=== PATIENT | female | born 1965 | race Caucasian/White ===

== ENCOUNTER 2016-09-18 17:23 | Emergency (ER) | payer OTHER ==
[~2016-09-18] VITALS: Ht 157.5 cm; Wt 87.1 kg
[~2016-09-18 17:23] MED LIST: ASPI81TA2 PO; GABA-531 PO; GLIP10TA11 PO; LOSA25TA11 PO; MECL25TA3 PO; METF1000 PO; METH750T3 PO
[2016-09-18 17:33] VITALS: BP_SYST 194
[2016-09-18] MEDS ORDERED: KETOROLAC TROMETHAMINE 60 MG/2 ML VIAL IM ONE (19:45)
[2016-09-18 20:35] VITALS: BP_SYST 156
== END 2016-09-18 20:35 | disposition home or self-care (01) ==
LOC: SED 17:23
DX: S20.219A Contusion of unspecified front wall of thorax, initial encounter (principal); E11.9 Type 2 diabetes mellitus without complications; K21.9 Gastro-esophageal reflux disease without esophagitis; Z88.1 Allergy status to other antibiotic agents; Z88.8 Allergy status to other drugs, medicaments and biological substances; Z79.82 Long term (current) use of aspirin; W01.0XXA Fall on same level from slipping, tripping and stumbling without subsequent striking against object, initial encounter; Y93.89 Activity, other specified; Y92.89 Other specified places as the place of occurrence of the external cause; Y99.8 Other external cause status
CPT/HCPCS: 71020; 96372; 99284; J1885

== ENCOUNTER 2018-07-25 01:34 | Inpatient (IN) | payer BC, OTHER ==
[~2018-07-25] VITALS: Ht 157.5 cm; Wt 90.3 kg
[~2018-07-25 01:34] MED LIST changes: +ASPI-1155 PO; -ASPI81TA2 PO; -LOSA25TA11 PO; +LOSA25TA18 PO
[2018-07-25 01:53] VITALS: BP_SYST 167
[2018-07-25] MEDS ORDERED: ONDANSETRON 4 MG ODT TAB PO ONE (02:15)
[2018-07-25] MEDS ORDERED: NACL 0.9% 1,000 ML IV ONE ×2 (02:17→03:45)
[2018-07-25] MEDS ORDERED: MORPHINE 4 MG/ML INJ. SYRINGE IVP ONE ×2 (02:30→04:00)
[2018-07-25 02:36] LABS: BASOPHILS # (AUTO) 0.2 K/uL (0.0-0.2); BASOPHILS % (AUTO) 1.3 % (0.0-2.0); EOSINOPHILS # (AUTO) 0.1 K/uL (0.0-0.4); EOSINOPHILS % (AUTO) 0.6 % (0.0-4.0); HEMATOCRIT 44.7 % (36-48); HEMOGLOBIN 15.3 g/dL (12.0-16.0); LYMPHOCYTES # (AUTO) 1.8 K/uL (1.0-5.5); LYMPHOCYTES % (AUTO) 14.5 % (20.5-51.5); MEAN CORPUSCULAR HEMOGLOBIN 33 pg (27-31); MEAN CORPUSCULAR HGB CONC 34 % (32-36); MEAN CORPUSCULAR VOLUME 95 fL (79.0-98.0); MONOCYTES # (AUTO) 0.7 K/uL (0.0-1.0); NEUTROPHILS # (AUTO) 9.4 K/uL (1.8-7.7); NEUTROPHILS % (AUTO) 77.6 % (40.0-70.0); PLATELET COUNT (AUTO) 285 K/uL (130-430); RED BLOOD CELL COUNT(AUTO) 4.69 MIL/uL (4.2-6.2); RED CELL DISTRIBUTION WIDTH 12.9 % (9.0-15.0); WHITE BLOOD COUNT (AUTO) 12.1 K/uL (4.8-10.8)
[2018-07-25 02:44] LABS: CREATININE 0.65 mg/dL (0.55-1.30); POTASSIUM 3.6 mmol/L (3.5-5.1)
[2018-07-25 02:49] LABS: ALBUMIN 3.9 g/dL (3.4-4.8); TOTAL BILIRUBIN 0.7 mg/dL (0.0-1.0)
[2018-07-25] MEDS ORDERED: GLIP10TA11 PO (03:30)
[2018-07-25] MEDS ORDERED: GLU500 PO (03:30)
[2018-07-25] MEDS ORDERED: GLU850 PO (03:30)
[2018-07-25] MEDS ORDERED: PREG75CA PO (03:30)
[2018-07-25] MEDS ORDERED: NAPR-688 PO (03:30)
[2018-07-25] MEDS ORDERED: METO50TA7 PO (03:30)
[2018-07-25] MEDS ORDERED: LOSA50TA3 PO (03:30)
[2018-07-25] MEDS ORDERED: 5-HY100C PO (03:30)
[2018-07-25 03:35] LABS: BILIRUBIN,URINE NEGATIVE (NEGATIVE); BLOOD, URINE NEGATIVE (NEGATIVE); CLARITY/URINE CLEAR (CLEAR); COLOR,URINE YELLOW (YELLOW); GLUCOSE,URINE 3+ (NEGATIVE); KETONES,URINE TRACE (NEGATIVE); LEUKOCYTE ESTERASE ,URINE NEGATIVE (NEGATIVE); NITRITE, URINE NEGATIVE (NEGATIVE); PH,URINE 8.5 (5.0-8.0); PROTEIN URINE TRACE (NEGATIVE); UROBILINOGEN,URINE 0.2 (0.2-1.0)
[2018-07-25 03:38] LABS: BACTERIA,URINE MODERATE /HPF (None Seen); RBC,URINE 0-3 /HPF (0-3); WBC,URINE 0-3 /HPF (0-3)
[2018-07-25] MEDS ORDERED: ENALAPRILAT DIHYDRATE 1.25 MG/ML VIAL IVP ONE (03:45)
[2018-07-25] MEDS: LABETALOL 100 MG/ 20ML VIAL IVP PRN (04:43)
[2018-07-25] MEDS ORDERED: MORPHINE 2 MG/ML INJ. SYRINGE IVP PRN (05:00)
[2018-07-25] MEDS ORDERED: INSULIN REGULAR, HUMAN 100 UNITS/ML, 10 ML VIAL SUBCUT PRN (05:00)
[2018-07-25] MEDS ORDERED: MORPHINE 4 MG/ML INJ. SYRINGE IVP PRN (05:00)
[2018-07-25] MEDS ORDERED: D5/0.45 NS 1,000 ML IV SCH (05:00)
[2018-07-25 05:36] VITALS: BP_SYST 155
[2018-07-25] MEDS: INSULIN REGULAR, HUMAN 100 UNITS/ML, 10 ML VIAL (humuLIN R) SUBCUT PRN ×3 (06:05→18:01)
[2018-07-25 08:10] VITALS: BP_SYST 168
[2018-07-25] MEDS: ONDANSETRON HCL 4 MG/2 ML VIAL IVP PRN ×4 (08:51→20:41)
[2018-07-25] MEDS ORDERED: D5W 1,000 ML IV PRN (09:08)
[2018-07-25] MEDS ORDERED: cefTRIAXone 1 GM IVPB PREMIX 50 ML IV SCH (09:15)
[2018-07-25] MEDS ORDERED: GLUCOSE 15 GM GEL (in 37.5 GM TUBE) PO PRN (09:15)
[2018-07-25] MEDS ORDERED: DEXTROSE 50% JECT 50 ML DISP.SYRIN IVP PRN (09:15)
[2018-07-25] MEDS: NACL 0.9% 1,000 ML IV SCH ×2 (10:52→22:09)
[2018-07-25] MEDS ORDERED: NITROGLYCERIN 1 INCH (GM) OINT. TP ONE (11:15)
[2018-07-25 12:00] VITALS: BP_SYST 165
[2018-07-25] MEDS ORDERED: PIPERACILLIN/TAZO 3.375/DEX-IS 50 ML IV ONE (12:00)
[2018-07-25] MEDS: MORPHINE 4 MG/ML INJ. SYRINGE IVP PRN ×3 (12:42→17:05)
[2018-07-25 16:14] VITALS: BP_SYST 133
[2018-07-25] MEDS: PIPERACILLIN/TAZO 3.375/DEX-IS 50 ML IV SCH ×2 (18:03→23:52)
[2018-07-25 20:00] VITALS: BP_SYST 161
[2018-07-25] MEDS: NITROGLYCERIN 1 INCH (GM) OINT. TP SCH (20:42)
[2018-07-26] MEDS: INSULIN REGULAR, HUMAN 100 UNITS/ML, 10 ML VIAL (humuLIN R) SUBCUT PRN ×5 (00:01→23:08)
[2018-07-26 00:21] VITALS: BP_SYST 143
[2018-07-26] MEDS: ONDANSETRON HCL 4 MG/2 ML VIAL IVP PRN ×4 (00:41→22:19)
[2018-07-26] MEDS: LORazepam 2 MG/ML VIAL IVP PRN ×2 (00:42→23:13)
[2018-07-26] MEDS: MORPHINE 2 MG/ML INJ. SYRINGE IVP PRN ×3 (00:44→22:21)
[2018-07-26] MEDS: PIPERACILLIN/TAZO 3.375/DEX-IS 50 ML IV SCH ×4 (05:26→23:05)
[2018-07-26 06:12] LABS: BASOPHILS % (AUTO) 0.4 % (0.0-2.0); EOSINOPHILS # (AUTO) 0.2 K/uL (0.0-0.4); EOSINOPHILS % (AUTO) 2.6 % (0.0-4.0); HEMOGLOBIN 11.9 g/dL (12.0-16.0); LYMPHOCYTES # (AUTO) 1.7 K/uL (1.0-5.5); LYMPHOCYTES % (AUTO) 27.3 % (20.5-51.5); MEAN CORPUSCULAR HEMOGLOBIN 33 pg (27-31); MEAN CORPUSCULAR HGB CONC 34 % (32-36); MEAN CORPUSCULAR VOLUME 97 fL (79.0-98.0); MONOCYTES # (AUTO) 0.7 K/uL (0.0-1.0); NEUTROPHILS # (AUTO) 3.6 K/uL (1.8-7.7); NEUTROPHILS % (AUTO) 57.7 % (40.0-70.0); PLATELET COUNT (AUTO) 212 K/uL (130-430); RED BLOOD CELL COUNT(AUTO) 3.62 MIL/uL (4.2-6.2); RED CELL DISTRIBUTION WIDTH 12.9 % (9.0-15.0); WHITE BLOOD COUNT (AUTO) 6.2 K/uL (4.8-10.8)
[2018-07-26 06:33] LABS: ALBUMIN 2.6 g/dL (3.4-4.8); CALCIUM 8.6 mg/dL (8.4-11.0); CREATININE 0.54 mg/dL (0.55-1.30); PHOSPHORUS 3.5 mg/dL (2.7-4.5); TOTAL BILIRUBIN 0.7 mg/dL (0.0-1.0)
[2018-07-26 08:30] VITALS: BP_SYST 156
[2018-07-26] MEDS ORDERED: POTASSIUM CHLORIDE 40 MEQ in NS 250 ML IV ONE (09:00)
[2018-07-26] MEDS: NACL 0.9% 1,000 ML IV SCH ×3 (09:04→21:07)
[2018-07-26] MEDS: NITROGLYCERIN 1 INCH (GM) OINT. TP SCH ×2 (09:04→21:00)
[2018-07-26] MEDS: MORPHINE 4 MG/ML INJ. SYRINGE IVP PRN (10:23)
[2018-07-26] MEDS: LABETALOL 100 MG/ 20ML VIAL IVP PRN (10:49)
[2018-07-26 12:48] VITALS: BP_SYST 141
[2018-07-26 16:52] VITALS: BP_SYST 149
[2018-07-26 20:50] VITALS: BP_SYST 161
[2018-07-27 00:32] VITALS: BP_SYST 155
[2018-07-27] MEDS: PIPERACILLIN/TAZO 3.375/DEX-IS 50 ML IV SCH ×4 (05:33→23:13)
[2018-07-27] MEDS: INSULIN REGULAR, HUMAN 100 UNITS/ML, 10 ML VIAL (humuLIN R) SUBCUT PRN ×4 (05:36→23:17)
[2018-07-27] MEDS: NACL 0.9% 1,000 ML IV SCH ×2 (07:10→17:31)
[2018-07-27 08:11] LABS: BASOPHILS % (AUTO) 0.5 % (0.0-2.0); EOSINOPHILS # (AUTO) 0.2 K/uL (0.0-0.4); EOSINOPHILS % (AUTO) 3.4 % (0.0-4.0); HEMATOCRIT 36.5 % (36-48); HEMOGLOBIN 12.7 g/dL (12.0-16.0); LYMPHOCYTES # (AUTO) 1.2 K/uL (1.0-5.5); LYMPHOCYTES % (AUTO) 23.5 % (20.5-51.5); MEAN CORPUSCULAR HEMOGLOBIN 34 pg (27-31); MEAN CORPUSCULAR HGB CONC 35 % (32-36); MEAN CORPUSCULAR VOLUME 97 fL (79.0-98.0); MONOCYTES # (AUTO) 0.5 K/uL (0.0-1.0); MONOCYTES % (AUTO) 9.4 % (1.7-9.3); NEUTROPHILS # (AUTO) 3.1 K/uL (1.8-7.7); NEUTROPHILS % (AUTO) 63.2 % (40.0-70.0); PLATELET COUNT (AUTO) 213 K/uL (130-430); RED BLOOD CELL COUNT(AUTO) 3.77 MIL/uL (4.2-6.2); RED CELL DISTRIBUTION WIDTH 13.2 % (9.0-15.0); WHITE BLOOD COUNT (AUTO) 4.9 K/uL (4.8-10.8)
[2018-07-27 08:20] VITALS: BP_SYST 167
[2018-07-27 08:29] LABS: CALCIUM 8.6 mg/dL (8.4-11.0); CREATININE 0.5 mg/dL (0.55-1.30); POTASSIUM 3.2 mmol/L (3.5-5.1)
[2018-07-27] MEDS: NITROGLYCERIN 1 INCH (GM) OINT. TP SCH ×2 (08:30→21:29)
[2018-07-27] MEDS: LABETALOL 100 MG/ 20ML VIAL IVP PRN (14:24)
[2018-07-27] MEDS: MORPHINE 2 MG/ML INJ. SYRINGE IVP PRN (14:28)
[2018-07-27] MEDS ORDERED: POTASSIUM CHLORIDE 20 MEQ TAB.PRT.SR PO ONE (14:45)
[2018-07-27 16:39] VITALS: BP_SYST 166
[2018-07-27] MEDS ORDERED: cloNIDine HCL 0.1 MG TABLET PO ONE (18:30)
[2018-07-27 20:05] VITALS: BP_SYST 176
[2018-07-27] MEDS ORDERED: LOSARTAN POTASSIUM 50 MG TABLET (COZAAR) PO ONE (20:45)
[2018-07-27] MEDS ORDERED: METOPROLOL TARTRATE 50 MG TABLET PO ONE (20:45)
[2018-07-27 21:23] VITALS: BP_SYST 153
[2018-07-27] MEDS: LORazepam 2 MG/ML VIAL IVP PRN (23:26)
[2018-07-28] VITALS (9 sets, daily range): BP systolic 155–208
[2018-07-28] MEDS: MORPHINE 2 MG/ML INJ. SYRINGE IVP PRN (01:09)
[2018-07-28] MEDS: NACL 0.9% 1,000 ML IV SCH ×2 (05:14→16:11)
[2018-07-28] MEDS: PIPERACILLIN/TAZO 3.375/DEX-IS 50 ML IV SCH ×3 (05:14→17:17)
[2018-07-28] MEDS: INSULIN REGULAR, HUMAN 100 UNITS/ML, 10 ML VIAL (humuLIN R) SUBCUT PRN ×3 (05:21→17:18)
[2018-07-28] MEDS: LABETALOL 100 MG/ 20ML VIAL IVP PRN (05:28)
[2018-07-28] MEDS: NITROGLYCERIN 1 INCH (GM) OINT. TP SCH (08:26)
[2018-07-28] MEDS ORDERED: FUROSEMIDE 20 MG/2 ML VIAL IVP ONE (09:00)
[2018-07-28] MEDS: METOPROLOL SUCCINATE 25 MG TAB.SR.24H (TOPROL XL) PO SCH ×2 (09:20→20:46)
[2018-07-28] MEDS: LOSARTAN POTASSIUM 50 MG TABLET (COZAAR) PO SCH ×2 (09:21→22:16)
[2018-07-28] MEDS: MORPHINE 4 MG/ML INJ. SYRINGE IVP PRN ×2 (10:41→22:22)
[2018-07-28] MEDS ORDERED: NITROGLYCERIN 1 INCH (GM) OINT. TP ONE (16:00)
[2018-07-28] MEDS ORDERED: LOSARTAN POTASSIUM 50 MG TABLET (COZAAR) PO ONE (16:00)
[2018-07-28] MEDS ORDERED: NIFEDIPINE 30 MG TAB.ER.24 PO ONE (19:30)
[2018-07-28] MEDS ORDERED: COMMUNICATION ORDER XX ONE (20:15)
[2018-07-28] MEDS ORDERED: NIFEDIPINE 30 MG TAB.ER.24 PO SCH (21:00)
[2018-07-29] MEDS: PIPERACILLIN/TAZO 3.375/DEX-IS 50 ML IV SCH ×3 (00:16→11:45)
[2018-07-29] MEDS: LORazepam 2 MG/ML VIAL IVP PRN (00:17)
[2018-07-29] MEDS: INSULIN REGULAR, HUMAN 100 UNITS/ML, 10 ML VIAL (humuLIN R) SUBCUT PRN ×3 (00:29→11:55)
[2018-07-29 00:30] VITALS: BP_SYST 163
[2018-07-29 04:00] VITALS: BP_SYST 160
[2018-07-29] MEDS: NACL 0.9% 1,000 ML IV SCH ×2 (04:01→13:08)
[2018-07-29 06:31] LABS: BASOPHILS % (AUTO) 0.4 % (0.0-2.0); EOSINOPHILS # (AUTO) 0.1 K/uL (0.0-0.4); EOSINOPHILS % (AUTO) 2.5 % (0.0-4.0); HEMATOCRIT 37.4 % (36-48); HEMOGLOBIN 12.8 g/dL (12.0-16.0); LYMPHOCYTES # (AUTO) 1.4 K/uL (1.0-5.5); LYMPHOCYTES % (AUTO) 25.4 % (20.5-51.5); MEAN CORPUSCULAR HEMOGLOBIN 33 pg (27-31); MEAN CORPUSCULAR HGB CONC 34 % (32-36); MEAN CORPUSCULAR VOLUME 96 fL (79.0-98.0); MONOCYTES # (AUTO) 0.8 K/uL (0.0-1.0); MONOCYTES % (AUTO) 14.7 % (1.7-9.3); NEUTROPHILS # (AUTO) 3.3 K/uL (1.8-7.7); PLATELET COUNT (AUTO) 228 K/uL (130-430); RED BLOOD CELL COUNT(AUTO) 3.91 MIL/uL (4.2-6.2); RED CELL DISTRIBUTION WIDTH 12.8 % (9.0-15.0); WHITE BLOOD COUNT (AUTO) 5.7 K/uL (4.8-10.8)
[2018-07-29 06:47] LABS: CALCIUM 9.1 mg/dL (8.4-11.0); CREATININE 0.67 mg/dL (0.55-1.30)
[2018-07-29 08:00] VITALS: BP_SYST 157
[2018-07-29] MEDS: MORPHINE 2 MG/ML INJ. SYRINGE IVP PRN (08:18)
[2018-07-29] MEDS ORDERED: NITROGLYCERIN 1 INCH (GM) OINT. TP SCH (09:00)
[2018-07-29] MEDS ORDERED: NIFEDIPINE 30 MG TAB.ER.24 PO SCH ×2 (09:00)
[2018-07-29] MEDS ORDERED: FUROSEMIDE 20 MG TABLET PO SCH (09:00)
[2018-07-29] MEDS: METOPROLOL SUCCINATE 25 MG TAB.SR.24H (TOPROL XL) PO SCH (09:02)
[2018-07-29] MEDS: LOSARTAN POTASSIUM 50 MG TABLET (COZAAR) PO SCH (09:03)
[2018-07-29] MEDS ORDERED: HYDROCHLOROTHIAZIDE 25 MG TABLET (HCTZ) PO ONE (11:15)
[2018-07-29 12:00] VITALS: BP_SYST 153
[2018-07-29] MEDS ORDERED: FURO-150 PO (12:24)
[2018-07-29] MEDS ORDERED: NITR30OI TP (12:24)
[2018-07-29] MEDS ORDERED: Nifedipine PO (12:24)
[2018-07-29] MEDS ORDERED: HCT25 PO (12:24)
[2018-07-29] MEDS: MORPHINE 4 MG/ML INJ. SYRINGE IVP PRN (14:06)
[2018-07-29] MEDS ORDERED: POTASSIUM CHLORIDE 20 MEQ TAB.PRT.SR PO ONE ×3 (14:45→16:45)
[2018-07-29 15:53] VITALS: BP_SYST 150
[2018-07-29 16:31] VITALS: BP_SYST 147
[2018-07-30] MEDS ORDERED: HYDROCHLOROTHIAZIDE 25 MG TABLET (HCTZ) PO SCH (09:00)
== END 2018-07-29 16:45 | disposition home or self-care (01) | DRG 389 ==
LOC: SED 01:34 → STU 04:13 → SMU 07-26 13:53 → STU 07-28 19:58
PROVIDERS: ADMIT Preventive Medicine Preventive Medicine/Occupational Environmental Medicine; ATTEND Preventive Medicine Preventive Medicine/Occupational Environmental Medicine
DX: K56.609 Unspecified intestinal obstruction, unspecified as to partial versus complete obstruction (principal); E87.1 Hypo-osmolality and hyponatremia; D64.9 Anemia, unspecified; E11.40 Type 2 diabetes mellitus with diabetic neuropathy, unspecified; E11.65 Type 2 diabetes mellitus with hyperglycemia; E66.9 Obesity, unspecified; E78.5 Hyperlipidemia, unspecified; E87.6 Hypokalemia; I10 Essential (primary) hypertension; J44.9 Chronic obstructive pulmonary disease, unspecified; K21.9 Gastro-esophageal reflux disease without esophagitis; K57.90 Diverticulosis of intestine, part unspecified, without perforation or abscess without bleeding; G89.29 Other chronic pain; M19.90 Unspecified osteoarthritis, unspecified site; K76.0 Fatty (change of) liver, not elsewhere classified; Z82.49 Family history of ischemic heart disease and other diseases of the circulatory system; Z83.3 Family history of diabetes mellitus; Z90.49 Acquired absence of other specified parts of digestive tract; Z88.1 Allergy status to other antibiotic agents; Z79.899 Other long term (current) drug therapy; Z98.51 Tubal ligation status; Z68.36 Body mass index [BMI] 36.0-36.9, adult
CPT/HCPCS: 36415; 71045; 71250-TC; 74018; 80048; 80053; 80061; 81000-TC; 82962; 83690-TC; 83735-TC; 84100-TC; 85025; 87040-TC; 87086; 93005; 93306; 96361; 96374; 96375; 96376; 99285; G0378; J0696; J1815; J1940; J2060; J2270; J2405; J2543; J3480; J3490; J7030; J7050; Q0162

== ENCOUNTER 2022-06-04 06:57 | Emergency (ER) | payer BC ==
[~2022-06-04] VITALS: Ht 154.9 cm; Wt 74.8 kg
[~2022-06-04 06:57] MED LIST changes: +5-HY100C PO; -ASPI-1155 PO; +FURO-150 PO; +GLU850 PO; +HCT25 PO; -LOSA25TA18 PO; -MECL25TA3 PO; -METF1000 PO; +METH-634 PO; -METH750T3 PO; +NAPR-688 PO; +NITR30OI TP; +Nifedipine PO; +PREG75CA PO
[2022-06-04 07:00] VITALS: BP_SYST 194
[2022-06-04] MEDS ORDERED: KETOROLAC TROMETHAMINE 30 MG VIAL IM ONE (07:15)
[2022-06-04] MEDS ORDERED: HYDR-3917 PO (10:01)
[2022-06-04 10:20] VITALS: BP_SYST 194
== END 2022-06-04 10:20 | disposition home or self-care (01) ==
LOC: EEVIPCON 06:57 → SED 06:57
DX: S63.502A Unspecified sprain of left wrist, initial encounter (principal); S20.212A Contusion of left front wall of thorax, initial encounter; E11.9 Type 2 diabetes mellitus without complications; K21.9 Gastro-esophageal reflux disease without esophagitis; I10 Essential (primary) hypertension; Z88.1 Allergy status to other antibiotic agents; Z88.8 Allergy status to other drugs, medicaments and biological substances; Z79.899 Other long term (current) drug therapy; W19.XXXA Unspecified fall, initial encounter; Y93.89 Activity, other specified; Y92.89 Other specified places as the place of occurrence of the external cause; Y99.8 Other external cause status
CPT/HCPCS: 99284; 71045; 71100; 73110; 96372; J1885